=== PATIENT | male | born 1995 ===

== ENCOUNTER 2020-06-08 20:43 | Emergency (ER) | payer SELFPAY ==
--- NOTE | 2020-06-08 21:28 | RAD ---
EXAM: Single view of the chest HISTORY: Chest pain COMPARISON: None FINDINGS: Single view of the chest shows a normal sized cardiomediastinal silhouette. No pneumothora x is seen. There is no evidence of consolidation, mass, or pleural effusion. No acute osseous abnormality. IMPRESSION: No evidence of acute cardiopulmonary disease
== END 2020-06-08 22:39 | disposition left against medical advice (07) ==
LOC: ERS 20:43
DX: Z53.21 Procedure and treatment not carried out due to patient leaving prior to being seen by health care provider (principal)
CPT/HCPCS: 71045; 93005